=== PATIENT | male | born 1965 | race African-American/Black ===

== ENCOUNTER 2017-08-31 22:12 | Inpatient (IN) | payer MEDICAID ==
[2017-08-31] MEDS: NITROGLYCERIN SUBLINGUAL 0.4 MG BOTTLE OF 25. SL (22:53)
[2017-08-31 22:57] LABS: ADD MAN DIFF? NO
[2017-08-31 23:00] LABS: BASO # 0.1 x10^3/uL (0.0-0.2); BASO % 2 % (0-3); EOS % 0 % (0-3); HEMOGLOBIN 11.9 g/dL (13.0-17.5); LYMPH # 0.5 x10^3/uL (1.0-4.8); LYMPH % 8 % (24-48); MEAN CORPUSCULAR HEMOGLOBIN 27 pg (25-35); MEAN CORPUSCULAR HGB CONC 33 g/dL (31-37); MEAN CORPUSCULAR VOLUME 82 fL (79-100); MONO # 0.5 x10^3/uL (0.0-1.1); MONO % 8 % (0-9); NEUT # 5.4 x10^3uL (1.8-7.7); NEUT % 82 % (31-73); PLATELET COUNT 231 x10^3/uL (140-400); RED BLOOD COUNT 4.39 x10^6/uL (4.30-5.70); RED CELL DISTRIBUTION WIDTH 15.4 % (11.5-14.5); WHITE BLOOD COUNT 6.5 x10^3/uL (4.0-11.0)
[2017-08-31 23:10] LABS: INR 1.2 (0.8-1.1); PROTHROMBIN TIME PATIENT 14.7 SEC (11.7-14.0)
[2017-08-31 23:11] LABS: PARTIAL THROMBOPLASTIN TIME 34 SEC (24-38)
[2017-08-31 23:14] LABS: ANION GAP 22 (6-14); BLOOD UREA NITROGEN 109 mg/dL (8-26); BUN/CREATININE RATIO 14 (6-20); CALCIUM 7.1 mg/dL (8.5-10.1); CARBON DIOXIDE 18 mmol/L (21-32); CHLORIDE 91 mmol/L (98-107); GFR 8.6; GLUCOSE 130 mg/dL (70-99); POTASSIUM 4.2 mmol/L (3.5-5.1); SODIUM 131 mmol/L (136-145)
[2017-08-31 23:14] LABS: ETHANOL < 10 mg/dL (0-10)
[2017-08-31 23:21] LABS: ALBUMIN 3.9 g/dL (3.4-5.0); ALBUMIN/GLOBULIN RATIO 1.1 (1.0-1.7); ALK PHOS 115 U/L (46-116); ALT (SGPT) 35 U/L (16-63); AST (SGOT) 36 U/L (15-37); MAGNESIUM 2.1 mg/dL (1.8-2.4); TOTAL BILIRUBIN 0.7 mg/dL (0.2-1.0)
[2017-08-31 23:22] LABS: TOTAL PROTEIN 7.5 g/dL (6.4-8.2)
[2017-08-31 23:25] LABS: AMPHETAMINE/METHAMPHETAMINE NEG (NEG); BARBITURATES NEG (NEG); BENZODIAZEPINES NEG (NEG); CANNABINOIDS NEG (NEG); COCAINE NEG (NEG); ETHANOL, URINE NEG (NEG); METHADONE NEG (NEG); OPIATES NEG (NEG); PHENCYCLIDINE NEG (NEG)
[2017-08-31 23:25] LABS: NT-PRO BNP > 35000 pg/mL (0-124)
[2017-08-31 23:45] LABS: INFLUENZA A PATIENT NEGATIVE (NEGATIVE); INFLUENZA B PATIENT NEGATIVE (NEGATIVE); OBC FLU VALID
[2017-08-31] MEDS ORDERED: ONDANSETRON PF 4 MG/2 ML VIAL. IV (23:45)
[2017-09-01] MEDS: ASPIRIN ENTERIC COATED 325 MG TABLET.DR. PO ×2 (00:39→09:21)
[2017-09-01] MEDS: fentaNYL PF VIAL 100 MCG/2 ML VIAL IV ×2 (01:15→07:05)
[2017-09-01] MEDS: NITROGLYCERIN SUBLINGUAL 0.4 MG BOTTLE OF 25. SL (02:31)
[2017-09-01 07:01] LABS: ANION GAP 21 (6-14); BLOOD UREA NITROGEN 110 mg/dL (8-26); CALCIUM 7.2 mg/dL (8.5-10.1); CARBON DIOXIDE 19 mmol/L (21-32); CHLORIDE 93 mmol/L (98-107); CREATININE 8.3 mg/dL (0.7-1.3); GFR 8.2; GLUCOSE 106 mg/dL (70-99); POTASSIUM 3.4 mmol/L (3.5-5.1); SODIUM 133 mmol/L (136-145)
[2017-09-01 07:12] LABS: TROPONINI 2.036 ng/mL (0.000-0.055)
[2017-09-01] MEDS ORDERED: ONDANSETRON PF 4 MG/2 ML VIAL. IV (08:00)
[2017-09-01] MEDS ORDERED: ACETAMINOPHEN 500 MG TABLET PO (08:00)
[2017-09-01 08:23] LABS: BASO # 0.1 x10^3/uL (0.0-0.2); BASO % 1 % (0-3); EOS % 0 % (0-3); HEMATOCRIT 34.4 % (39.0-53.0); HEMOGLOBIN 11.3 g/dL (13.0-17.5); LYMPH # 0.4 x10^3/uL (1.0-4.8); LYMPH % 7 % (24-48); MEAN CORPUSCULAR HEMOGLOBIN 27 pg (25-35); MEAN CORPUSCULAR HGB CONC 33 g/dL (31-37); MEAN CORPUSCULAR VOLUME 83 fL (79-100); MONO # 0.4 x10^3/uL (0.0-1.1); MONO % 6 % (0-9); NEUT # 5.6 x10^3uL (1.8-7.7); NEUT % 87 % (31-73); PLATELET COUNT 179 x10^3/uL (140-400); RED BLOOD COUNT 4.14 x10^6/uL (4.30-5.70); RED CELL DISTRIBUTION WIDTH 15.6 % (11.5-14.5); WHITE BLOOD COUNT 6.5 x10^3/uL (4.0-11.0)
[2017-09-01 08:28] LABS: ADD MAN DIFF? YES
[2017-09-01] MEDS: oxyCODONE/APAP 10/325 1 TAB TABLET PO (09:21)
[2017-09-01 10:54] LABS: % BANDS 2 % (0-9); % BASOS 1 % (0-3); % LYMPHS 7 % (24-48); % MONOS 6 % (0-10); % SEGS 84 % (35-66); ANISOCYTOSIS PRESENT; PLT ESTIMATE ADEQUATE (ADEQUATE); POIKILOCYTOSIS PRESENT
[2017-09-01 10:55] LABS: HELMET CELLS PRESENT; SCHISTOCYTES FEW
[2017-09-01 13:02] LABS: TROPONINI 15.322 ng/mL (0.000-0.055)
[2017-09-01] MEDS: SODIUM BICARBONATE 650 MG TABLET. PO ×2 (13:08→20:35)
[2017-09-01 18:09] LABS: MRSA BY PCR Negative (Negative)
[2017-09-02] MEDS: oxyCODONE/APAP 5/325 1 TAB TABLET PO (02:09)
[2017-09-02] MEDS: SODIUM BICARBONATE 650 MG TABLET. PO ×3 (09:25→21:02)
[2017-09-02] MEDS: ASPIRIN ENTERIC COATED 325 MG TABLET.DR. PO (09:25)
[2017-09-02 11:07] LABS: TROPONINI 18.757 ng/mL (0.000-0.055)
[2017-09-02 11:23] LABS: ALBUMIN 3.5 g/dL (3.4-5.0); ANION GAP 20 (6-14); BLOOD UREA NITROGEN 104 mg/dL (8-26); CALCIUM 6.7 mg/dL (8.5-10.1); CARBON DIOXIDE 20 mmol/L (21-32); CHLORIDE 90 mmol/L (98-107); CREATININE 8.5 mg/dL (0.7-1.3); GLUCOSE 121 mg/dL (70-99); PHOSPHORUS 6.5 mg/dL (2.6-4.7); POTASSIUM 3.3 mmol/L (3.5-5.1); SODIUM 130 mmol/L (136-145)
[2017-09-02 11:36] LABS: CKMB MASS 109.3 ng/mL (0.0-3.6); CREATINE KINASE 685 U/L (39-308)
[2017-09-02] MEDS: oxyCODONE/APAP 10/325 1 TAB TABLET PO ×2 (13:04→19:57)
[2017-09-02] MEDS: CARVEDILOL 3.125 MG TABLET. PO ×2 (13:05→18:11)
[2017-09-03] MEDS: oxyCODONE/APAP 10/325 1 TAB TABLET PO ×2 (01:23→14:40)
[2017-09-03 05:55] LABS: ALBUMIN 3.5 g/dL (3.4-5.0); ANION GAP 20 (6-14); BLOOD UREA NITROGEN 103 mg/dL (8-26); CALCIUM 6.9 mg/dL (8.5-10.1); CARBON DIOXIDE 20 mmol/L (21-32); CHLORIDE 89 mmol/L (98-107); CREATININE 8.5 mg/dL (0.7-1.3); GLUCOSE 100 mg/dL (70-99); PHOSPHORUS 6.7 mg/dL (2.6-4.7); POTASSIUM 3.4 mmol/L (3.5-5.1); SODIUM 129 mmol/L (136-145)
[2017-09-03] MEDS: IV NORMAL SALINE 1000ML BAG 1,000 ML IV (08:15)
[2017-09-03] MEDS: ASPIRIN ENTERIC COATED 325 MG TABLET.DR. PO (08:40)
[2017-09-03] MEDS: CARVEDILOL 3.125 MG TABLET. PO ×2 (08:40→20:36)
[2017-09-03] MEDS: SODIUM BICARBONATE 650 MG TABLET. PO (08:40)
[2017-09-03] MEDS ORDERED: CARVEDILOL 3.125 MG TABLET. PO (10:00)
[2017-09-03] MEDS ORDERED: LIDOCAINE WITH 8.4% SOD BICARB 3 ML DISP.SYRIN. IJ (10:19)
[2017-09-03 10:39] LABS: CHOLESTEROL 170 mg/dL (0-200); HDLC 87 mg/dL (40-60); LDLC 75 mg/dL (0-100); NON-HDL CHOLESTEROL 83 mg/dL (0-129); TRIGLYCERIDES 41 mg/dL (0-150); VLDLC 8 mg/dL (0-40)
[2017-09-03] MEDS: cloNIDine TTS-2 1 PATCH PATCH TD (13:15)
[2017-09-03] MEDS: CALCIUM ACETATE 667 MG CAPSULE PO ×2 (13:15→22:10)
[2017-09-03] MEDS: amLODIPine BESYLATE 10 MG TABLET PO (13:16)
[2017-09-03] MEDS ORDERED: HEPARIN for IV BOLUS 10,000 UNIT/10 ML VIAL. ×2 (15:03→15:26)
[2017-09-03] MEDS ORDERED: LIDOCAINE 2%/EPI 1:100,000 20 ML VIAL. ×2 (15:03→15:26)
[2017-09-03] MEDS ORDERED: fentaNYL PF VIAL 100 MCG/2 ML VIAL (15:52)
[2017-09-03] MEDS ORDERED: MIDAZOLAM HCL/PF 2 MG/2 ML VIAL. (15:52)
[2017-09-03] MEDS: LIDOCAINE 1%/EPI 1:100,000 20 ML VIAL. IJ (16:13)
[2017-09-03] MEDS: fentaNYL PF VIAL 100 MCG/2 ML VIAL IV (16:24)
[2017-09-03] MEDS: MIDAZOLAM HCL/PF 2 MG/2 ML VIAL. IV (16:25)
[2017-09-03] MEDS ORDERED: IV NORMAL SALINE 1000ML BAG 1,000 ML IV (17:05)
[2017-09-03] MEDS ORDERED: 0.9 % SODIUM CHLORIDE 10 ML DISP.SYRIN. IV ×2 (17:15)
[2017-09-03] MEDS ORDERED: DIALYSIS PATIENT. MC (17:15)
[2017-09-04 00:12] LABS: HEP B SURFACE AG Negative (Negative)
[2017-09-04 05:40] LABS: ADD MAN DIFF? NO
[2017-09-04 06:03] LABS: ALBUMIN 3.2 g/dL (3.4-5.0); ANION GAP 15 (6-14); BLOOD UREA NITROGEN 61 mg/dL (8-26); CALCIUM 7.2 mg/dL (8.5-10.1); CARBON DIOXIDE 27 mmol/L (21-32); CHLORIDE 95 mmol/L (98-107); CREATININE 5.8 mg/dL (0.7-1.3); GFR 12.4; GLUCOSE 136 mg/dL (70-99); PHOSPHORUS 5.2 mg/dL (2.6-4.7); POTASSIUM 3.5 mmol/L (3.5-5.1); SODIUM 137 mmol/L (136-145)
[2017-09-04 06:07] LABS: BASO # 0.1 x10^3/uL (0.0-0.2); BASO % 1 % (0-3); EOS % 1 % (0-3); HEMOGLOBIN 10.7 g/dL (13.0-17.5); LYMPH # 0.2 x10^3/uL (1.0-4.8); LYMPH % 4 % (24-48); MEAN CORPUSCULAR HEMOGLOBIN 27 pg (25-35); MEAN CORPUSCULAR HGB CONC 33 g/dL (31-37); MEAN CORPUSCULAR VOLUME 82 fL (79-100); MONO # 0.7 x10^3/uL (0.0-1.1); MONO % 11 % (0-9); NEUT # 5.6 x10^3uL (1.8-7.7); NEUT % 84 % (31-73); PLATELET COUNT 190 x10^3/uL (140-400); RED BLOOD COUNT 4.03 x10^6/uL (4.30-5.70); RED CELL DISTRIBUTION WIDTH 15.9 % (11.5-14.5); WHITE BLOOD COUNT 6.7 x10^3/uL (4.0-11.0)
[2017-09-04] MEDS: CALCIUM ACETATE 667 MG CAPSULE PO ×3 (09:00→18:23)
[2017-09-04] MEDS: ASPIRIN ENTERIC COATED 325 MG TABLET.DR. PO (09:01)
[2017-09-04] MEDS: amLODIPine BESYLATE 10 MG TABLET PO (09:01)
[2017-09-04] MEDS: CARVEDILOL 3.125 MG TABLET. PO ×2 (09:02→18:24)
[2017-09-04 11:11] LABS: RETIC COUNT 2.3 % (0.5-2.5)
[2017-09-04 11:17] LABS: % SAT IRON 8 % (15-34); IRON,SERUM 23 ug/dL (65-175)
[2017-09-04 11:31] LABS: FERRITIN 69 ng/mL (26-388)
[2017-09-04 11:54] LABS: TROPONINI 8.581 ng/mL (0.000-0.055)
[2017-09-04] MEDS: oxyCODONE/APAP 10/325 1 TAB TABLET PO (12:23)
[2017-09-04] MEDS: cloNIDine TTS-2 1 PATCH PATCH TD (12:23)
[2017-09-04] MEDS ORDERED: IV NORMAL SALINE 1000ML BAG 1,000 ML IV (14:41)
[2017-09-04] MEDS ORDERED: ALBUMIN HUMAN 25% 200 ML IV (14:45)
[2017-09-04] MEDS ORDERED: DIALYSIS PATIENT. MC (14:45)
[2017-09-04] MEDS ORDERED: 0.9 % SODIUM CHLORIDE 10 ML DISP.SYRIN. IV ×2 (14:45)
[2017-09-04 16:15] LABS: HEP B SURFACE ABDY Non Reactive (.)
[2017-09-05 04:05] LABS: ADD MAN DIFF? NO
[2017-09-05 04:15] LABS: BASO # 0.1 x10^3/uL (0.0-0.2); BASO % 2 % (0-3); EOS # 0.1 x10^3/uL (0.0-0.7); EOS % 2 % (0-3); HEMATOCRIT 31.4 % (39.0-53.0); HEMOGLOBIN 10.4 g/dL (13.0-17.5); LYMPH # 0.6 x10^3/uL (1.0-4.8); LYMPH % 11 % (24-48); MEAN CORPUSCULAR HEMOGLOBIN 28 pg (25-35); MEAN CORPUSCULAR HGB CONC 33 g/dL (31-37); MEAN CORPUSCULAR VOLUME 83 fL (79-100); MONO # 0.7 x10^3/uL (0.0-1.1); MONO % 12 % (0-9); NEUT # 4.2 x10^3uL (1.8-7.7); NEUT % 74 % (31-73); PLATELET COUNT 147 x10^3/uL (140-400); RED BLOOD COUNT 3.77 x10^6/uL (4.30-5.70); RED CELL DISTRIBUTION WIDTH 15.4 % (11.5-14.5); WHITE BLOOD COUNT 5.7 x10^3/uL (4.0-11.0)
[2017-09-05 04:32] LABS: ALBUMIN 2.9 g/dL (3.4-5.0); ALBUMIN/GLOBULIN RATIO 0.9 (1.0-1.7); ALK PHOS 95 U/L (46-116); ALT (SGPT) 20 U/L (16-63); ANION GAP 10 (6-14); AST (SGOT) 18 U/L (15-37); BLOOD UREA NITROGEN 38 mg/dL (8-26); BUN/CREATININE RATIO 9 (6-20); CALCIUM 7.7 mg/dL (8.5-10.1); CARBON DIOXIDE 28 mmol/L (21-32); CHLORIDE 97 mmol/L (98-107); CREATININE 4.3 mg/dL (0.7-1.3); GFR 17.6; GLUCOSE 106 mg/dL (70-99); PHOSPHORUS 3.4 mg/dL (2.6-4.7); POTASSIUM 3.7 mmol/L (3.5-5.1); SODIUM 135 mmol/L (136-145); TOTAL BILIRUBIN 0.5 mg/dL (0.2-1.0); TOTAL PROTEIN 6.3 g/dL (6.4-8.2)
[2017-09-05] MEDS: MORPHINE SULFATE 2 MG/ML DISP.SYRIN. IV (08:10)
[2017-09-05] MEDS: ASPIRIN ENTERIC COATED 325 MG TABLET.DR. PO (08:11)
[2017-09-05] MEDS: CARVEDILOL 3.125 MG TABLET. PO ×2 (08:11→17:00)
[2017-09-05] MEDS: CALCIUM ACETATE 667 MG CAPSULE PO ×3 (08:11→17:00)
[2017-09-05] MEDS: amLODIPine BESYLATE 10 MG TABLET PO (08:11)
[2017-09-05] MEDS ORDERED: hydrALAZINE 20 MG/ML VIAL. IVP (10:00)
[2017-09-05] MEDS ORDERED: IV NORMAL SALINE 1000ML BAG 1,000 ML IV ×2 (12:47)
[2017-09-05] MEDS ORDERED: DIALYSIS PATIENT. MC (13:00)
[2017-09-05] MEDS ORDERED: 0.9 % SODIUM CHLORIDE 10 ML DISP.SYRIN. IV ×2 (13:00)
[2017-09-05] MEDS ORDERED: ALBUMIN HUMAN 25% 200 ML IV (13:00)
[2017-09-05] MEDS ORDERED: diphenhydrAMINE 50 MG/ML VIAL IV ×2 (13:00)
[2017-09-05] MEDS: HEPARIN PF for SUB-Q USE 5,000 UNIT/0.5 ML VIAL. SQ ×2 (14:00→21:39)
[2017-09-06 05:23] LABS: ALBUMIN 2.5 g/dL (3.4-5.0); ANION GAP 8 (6-14); BLOOD UREA NITROGEN 24 mg/dL (8-26); CALCIUM 7.9 mg/dL (8.5-10.1); CARBON DIOXIDE 28 mmol/L (21-32); CHLORIDE 102 mmol/L (98-107); CREATININE 3.2 mg/dL (0.7-1.3); GFR 24.7; GLUCOSE 115 mg/dL (70-99); PHOSPHORUS 2.5 mg/dL (2.6-4.7); POTASSIUM 4.1 mmol/L (3.5-5.1); SODIUM 138 mmol/L (136-145)
[2017-09-06] MEDS: HEPARIN PF for SUB-Q USE 5,000 UNIT/0.5 ML VIAL. SQ ×3 (06:15→20:52)
[2017-09-06] MEDS: CARVEDILOL 3.125 MG TABLET. PO ×3 (08:00→17:00)
[2017-09-06] MEDS: CALCIUM ACETATE 667 MG CAPSULE PO (08:00)
[2017-09-06] MEDS: REGADENOSON 0.4 MG/5 ML DISP.SYRIN. IV (10:25)
[2017-09-06] MEDS: ASPIRIN ENTERIC COATED 325 MG TABLET.DR. PO (12:45)
[2017-09-06] MEDS: amLODIPine BESYLATE 10 MG TABLET PO (12:46)
[2017-09-06] MEDS: PARICALCITOL 5 MCG/ML VIAL. IV (12:48)
[2017-09-06] MEDS: oxyCODONE/APAP 10/325 1 TAB TABLET PO (16:00)
[2017-09-06] MEDS: diazePAM 5 MG TABLET PO ×2 (19:56→21:03)
[2017-09-06] MEDS ORDERED: diazePAM 5 MG TABLET PO (20:30)
[2017-09-07] MEDS: oxyCODONE/APAP 10/325 1 TAB TABLET PO ×3 (03:34→10:45)
[2017-09-07 05:52] LABS: ALBUMIN 2.6 g/dL (3.4-5.0); ANION GAP 13 (6-14); BLOOD UREA NITROGEN 35 mg/dL (8-26); CALCIUM 7.6 mg/dL (8.5-10.1); CARBON DIOXIDE 25 mmol/L (21-32); CHLORIDE 97 mmol/L (98-107); CREATININE 4.4 mg/dL (0.7-1.3); GFR 17.1; GLUCOSE 113 mg/dL (70-99); POTASSIUM 3.7 mmol/L (3.5-5.1); SODIUM 135 mmol/L (136-145)
[2017-09-07] MEDS: HEPARIN PF for SUB-Q USE 5,000 UNIT/0.5 ML VIAL. SQ (06:06)
[2017-09-07] MEDS ORDERED: IV NORMAL SALINE 1000ML BAG 1,000 ML IV (08:25)
[2017-09-07] MEDS ORDERED: ALBUMIN HUMAN 25% 200 ML IV (08:30)
[2017-09-07] MEDS ORDERED: DIALYSIS PATIENT. MC ×2 (08:30)
[2017-09-07] MEDS ORDERED: ACETAMINOPHEN 500 MG TABLET PO (08:30)
[2017-09-07] MEDS ORDERED: diphenhydrAMINE 50 MG/ML VIAL IV ×2 (08:30)
[2017-09-07] MEDS ORDERED: IRON SUCROSE COMPLEX 200 MG in IV NORMAL SALINE 100ML 100 ML IV (09:00)
[2017-09-07] MEDS: ASPIRIN ENTERIC COATED 325 MG TABLET.DR. PO (14:49)
[2017-09-07] MEDS: amLODIPine BESYLATE 10 MG TABLET PO (14:49)
[2017-09-07] MEDS: CARVEDILOL 3.125 MG TABLET. PO ×2 (14:51→17:45)
[2017-09-07] MEDS: CALCIUM ACETATE 667 MG CAPSULE PO ×2 (14:54→17:45)
[2017-09-07] MEDS: IRON SUCROSE COMPLEX 200 MG in IV NORMAL SALINE 100ML 100 ML IV (14:54)
[2017-09-07] MEDS: oxyCODONE/APAP 5/325 1 TAB TABLET PO (16:42)
== END 2017-09-07 18:40 | disposition home or self-care (01) | DRG 280 ==
LOC: 1 WEST ICU 23:38 → 2 NORTH 09-05 14:59 → ER 22:12
PROC: 5A1D70Z Performance of Urinary Filtration, Intermittent, Less than 6 Hours Per Day (ICD-10-PCS; 2017-09-03)
PROC: 02H633Z Insertion of Infusion Device into Right Atrium, Percutaneous Approach (ICD-10-PCS; 2017-09-03)
PROC: B2141ZZ Fluoroscopy of Right Heart using Low Osmolar Contrast (ICD-10-PCS; 2017-09-03)
PROC: 5A1D70Z Performance of Urinary Filtration, Intermittent, Less than 6 Hours Per Day (ICD-10-PCS; principal; 2017-09-04)
PROC: 5A1D70Z Performance of Urinary Filtration, Intermittent, Less than 6 Hours Per Day (ICD-10-PCS; 2017-09-05)
PROC: 5A1D70Z Performance of Urinary Filtration, Intermittent, Less than 6 Hours Per Day (ICD-10-PCS; 2017-09-07)
DX: I21.4 Non-ST elevation (NSTEMI) myocardial infarction (principal); N18.6 End stage renal disease; I13.2 Hypertensive heart and chronic kidney disease with heart failure and with stage 5 chronic kidney disease, or end stage renal disease; E87.2 Acidosis; N17.9 Acute kidney failure, unspecified; E87.1 Hypo-osmolality and hyponatremia; I16.1 Hypertensive emergency; D64.9 Anemia, unspecified; E78.5 Hyperlipidemia, unspecified; E87.6 Hypokalemia; I50.9 Heart failure, unspecified; Z79.899 Other long term (current) drug therapy; Z82.3 Family history of stroke; Z86.73 Personal history of transient ischemic attack (TIA), and cerebral infarction without residual deficits; Z99.2 Dependence on renal dialysis
CPT/HCPCS: 36415; 36558; 71045; 76770; 76937; 77001; 78452; 80048; 80053; 80061; 80069; 80307; 82553; 82728; 83540; 83550; 83735; 83880; 84100; 84484; 85007; 85025; 85045; 85610; 85730; 86704; 86706; 87340; 87641; 87804; 87804-59; 93005; 93017; 93306; 96374; 96375; 96376; 99152; 99153; 99291; 99291-25; A4215; A9500; C1750; C1892; G0480; J0690; J1756; J2250; J2270; J2501; J2785; J3010; J3490; J7050